=== PATIENT | female | born 1950 | race Caucasian/White ===

== ENCOUNTER 2016-08-05 14:08 | Emergency (ER) | payer OTHER, MEDICAID ==
[~2016-08-05] VITALS: Ht 134.6 cm; Wt 62.6 kg
[2016-08-05 15:17] VITALS: BP 152/77
== END 2016-08-05 17:43 | disposition home or self-care (01) ==
LOC: ED 14:08
DX: S32.019A Unspecified fracture of first lumbar vertebra, initial encounter for closed fracture (principal); S16.1XXA Strain of muscle, fascia and tendon at neck level, initial encounter; S29.012A Strain of muscle and tendon of back wall of thorax, initial encounter; Z86.12 Personal history of poliomyelitis; Z88.0 Allergy status to penicillin; Z88.5 Allergy status to narcotic agent; Z98.890 Other specified postprocedural states; W19.XXXA Unspecified fall, initial encounter; Y93.89 Activity, other specified; Y92.89 Other specified places as the place of occurrence of the external cause; Y99.8 Other external cause status
CPT/HCPCS: 72072

== ENCOUNTER 2017-12-22 18:57 | Emergency (ER) | payer OTHER, MEDICAID ==
[~2017-12-22] VITALS: Ht 152.4 cm; Wt 62.6 kg
[2017-12-22 19:03] VITALS: Ht 152.4 cm; Wt 62.6 kg
[2017-12-22 20:31] LABS: BASOPHIL % 1.3 % (0-2); PLATELET COUNT 295 x10^3mcL (130-400); RED CELL DISTRIBUTION WIDTH 13.6 % (11.5-14.5)
[2017-12-22 20:49] LABS: ALKALINE PHOSPHATASE 121 U/L (46-116); ALT/SGPT 35 U/L (14-59); AST/SGOT 23 U/L (15-37); BILIRUBIN TOTAL 0.22 mg/dL (0.20-1.00); CALCIUM 8.8 mg/dL (8.5-10.1); CARBON DIOXIDE 25.3 mmol/L (21-32); CHLORIDE SERUM 101 mmol/L (98-107); CREATININE SERUM 0.6 mg/dL (0.6-1.0); GFR1 > 60 mL/min; GLUCOSE SERUM 104 mg/dL (74-106); SODIUM SERUM 138 mmol/L (136-145); TOTAL PROTEIN, SERUM 8.1 g/dL (6.4-8.2)
[2017-12-22 20:57] LABS: ALBUMIN 3.3 g/dL (3.4-5.0); POTASSIUM SERUM 2.5 mmol/L (3.5-5.1)
[2017-12-23 01:04] VITALS: BP 115/72
== END 2017-12-23 01:04 | disposition home or self-care (01) ==
LOC: ED 18:57
PROVIDERS: Emergency Medicine
DX: J98.01 Acute bronchospasm (principal); I10 Essential (primary) hypertension; Z88.5 Allergy status to narcotic agent; Z88.0 Allergy status to penicillin; E87.6 Hypokalemia
CPT/HCPCS: J1885; J3480; J7613; J7644

== ENCOUNTER 2019-12-22 18:54 | Emergency (ER) | payer OTHER, MEDICAID ==
[~2019-12-22] VITALS: Ht 134.6 cm; Wt 63.5 kg
[2019-12-22 19:03] VITALS: Ht 134.6 cm; Wt 63.5 kg
[2019-12-22 20:44] VITALS: BP 136/76
== END 2019-12-22 20:44 | disposition home or self-care (01) ==
LOC: ED 18:54
DX: S01.01XD Laceration without foreign body of scalp, subsequent encounter (principal); K21.9 Gastro-esophageal reflux disease without esophagitis; J45.909 Unspecified asthma, uncomplicated; I10 Essential (primary) hypertension; Z88.0 Allergy status to penicillin; Z88.5 Allergy status to narcotic agent; W18.39XD Other fall on same level, subsequent encounter